=== PATIENT | female | born 1975 | race Caucasian/White ===

== ENCOUNTER 2017-03-07 21:18 | Emergency (ER) | payer OTHER ==
--- NOTE | 2017-03-08 08:17 | ER ---
ADMIT: 03/07/2017 RM/LOC: ER [facility] MR#: [id number] [facility] [id number] [place]INOZA [id number] [address] [facility] [place] [address] Emergency Room Report SEX: F AGE: 41 : 1975 DATE: 03/07/2017 The patient is a 41-year-old female with chronic anxiety, thinks she has a mass in her right upper abdomen. Exam remarkable for nontoxic, afebrile, anxious female, obese with no palpable mass. Prominent right costal margin is noted. CT abdomen and pelvis negative. Normal CBC, CMP, lactic acid, CRP, troponin, lipase, and urine. HCG negative. The patient given a liter of fluid, Zofran, Toradol, Dilaudid with improvement. Advised to follow up Dr. Carlisle as needed. Philip Landis MD/ norbert JOB #: [id number] CC: Philip Landis MD, Attending Physician New Carlisle MD, Family Physician New Carlisle MD
== END 2017-03-08 00:09 | disposition home or self-care (01) ==
LOC: ER 21:18
DX: R10.11 Right upper quadrant pain (principal); F41.9 Anxiety disorder, unspecified; E78.00 Pure hypercholesterolemia, unspecified; Z88.8 Allergy status to other drugs, medicaments and biological substances